=== PATIENT | female | born 1950 | race Caucasian/White ===

== ENCOUNTER 2021-08-10 14:34 | Outpatient (CLI) | payer MEDICARE, OTHER, SELFPAY | END 2021-08-10 14:35 | disposition home or self-care (01) | LOC: WOUND 14:36 | PROVIDERS: Family Provider Nurse Practitioner Family; PCP Nurse Practitioner Family; Visit Provider Thoracic Surgery (Cardiothoracic Vascular Surgery) | DX: L97.312 Non-pressure chronic ulcer of right ankle with fat layer exposed (principal); L97.322 Non-pressure chronic ulcer of left ankle with fat layer exposed; F17.210 Nicotine dependence, cigarettes, uncomplicated | CPT/HCPCS: 11042; G0463 ==

== ENCOUNTER 2021-08-15 13:37 | Outpatient (CLI) | payer MEDICARE, OTHER, SELFPAY | END 2021-08-15 13:38 | disposition home or self-care (01) | LOC: WOUND 13:38 | PROVIDERS: Family Provider Nurse Practitioner Family; PCP Nurse Practitioner Family; Visit Provider Nurse Practitioner Family | DX: Z51.89 Encounter for other specified aftercare (principal) | CPT/HCPCS: 11042; 29581 ==

== ENCOUNTER 2021-08-17 13:04 | Outpatient (CLI) | payer MEDICARE, OTHER, SELFPAY | END 2021-08-17 13:05 | disposition home or self-care (01) | LOC: WOUND 13:05 | PROVIDERS: Family Provider Nurse Practitioner Family; PCP Nurse Practitioner Family; Visit Provider Nurse Practitioner Family | DX: I87.2 Venous insufficiency (chronic) (peripheral) (principal); L97.312 Non-pressure chronic ulcer of right ankle with fat layer exposed; L97.322 Non-pressure chronic ulcer of left ankle with fat layer exposed; F17.210 Nicotine dependence, cigarettes, uncomplicated; J44.9 Chronic obstructive pulmonary disease, unspecified; I10 Essential (primary) hypertension | CPT/HCPCS: 11042 ==

== ENCOUNTER 2021-08-24 09:14 | Outpatient (CLI) | payer MEDICARE, OTHER, SELFPAY | END 2021-08-24 09:15 | disposition home or self-care (01) | LOC: WOUND 09:17 | PROVIDERS: Family Provider Nurse Practitioner Family; PCP Nurse Practitioner Family; Visit Provider Nurse Practitioner Family | DX: I87.2 Venous insufficiency (chronic) (peripheral) (principal); L97.312 Non-pressure chronic ulcer of right ankle with fat layer exposed; L97.322 Non-pressure chronic ulcer of left ankle with fat layer exposed; J44.9 Chronic obstructive pulmonary disease, unspecified; I10 Essential (primary) hypertension; F17.210 Nicotine dependence, cigarettes, uncomplicated | CPT/HCPCS: 11042; A6252 ==

== ENCOUNTER 2021-08-31 12:58 | Outpatient (CLI) | payer MEDICARE, OTHER, SELFPAY | END 2021-08-31 12:59 | disposition home or self-care (01) | LOC: WOUND 13:01 | PROVIDERS: Family Provider Nurse Practitioner Family; PCP Nurse Practitioner Family; Visit Provider Nurse Practitioner Family | DX: I96 Gangrene, not elsewhere classified (principal); I87.2 Venous insufficiency (chronic) (peripheral); L97.312 Non-pressure chronic ulcer of right ankle with fat layer exposed; L97.322 Non-pressure chronic ulcer of left ankle with fat layer exposed; F17.210 Nicotine dependence, cigarettes, uncomplicated; J44.9 Chronic obstructive pulmonary disease, unspecified | CPT/HCPCS: 11042; A6252 ==

== ENCOUNTER 2021-09-07 13:44 | Outpatient (CLI) | payer MEDICARE, OTHER, SELFPAY | END 2021-09-07 13:45 | disposition home or self-care (01) | LOC: WOUND 13:47 | PROVIDERS: Family Provider Nurse Practitioner Family; PCP Nurse Practitioner Family; Visit Provider Thoracic Surgery (Cardiothoracic Vascular Surgery) | DX: I96 Gangrene, not elsewhere classified (principal); I87.2 Venous insufficiency (chronic) (peripheral); L97.312 Non-pressure chronic ulcer of right ankle with fat layer exposed; L97.322 Non-pressure chronic ulcer of left ankle with fat layer exposed; F17.210 Nicotine dependence, cigarettes, uncomplicated; J44.9 Chronic obstructive pulmonary disease, unspecified | CPT/HCPCS: 11042; 97597; A6212 ==

== ENCOUNTER 2021-09-20 13:49 | Outpatient (CLI) | payer MEDICARE, OTHER, SELFPAY ==
--- NOTE | 2021-09-20 14:01 | USCV_ITS ---
Taylor Trent Age: 70 Gender: F : 1950 Exam Date: 09/20/2021 14:24 Ordering Phys: Clifton Galicia Technologist: Javi Carrillo Exam Location: [facility] [place]_ Indication: HISTORY: PROCEDURES: FINDINGS: The veins were found to be easily compressible with spontaneous blood flow. Non pulsatile flow pattern. The superficial veins that are small caliber at the below-knee levels. Venous reflux noted at the below-knee level of the greater saphenous vein segment on the left CONCLUSIONS 1. No evidence of DVT in the above-mentioned identifiable veins. 2. Significant venous reflux of greater than 500 ms were noted at the below-knee segment of the greater saphenous vein on the left side. But the venous segment was found to be of small caliber and very superficial(0.22 cm in diameter at a depth of 0.28 cm) 3. Superficial veins were found to be a small caliber bilaterally at the below-knee level. They were also found to be very superficial bilaterally-less than [address] Oswaldo Nesbitt MD [facility] (Electronically Signed) Final Date: 24 September 2021 16:02 S
== END 2021-09-20 13:50 | disposition home or self-care (01) ==
PROVIDERS: PCP Family Medicine; Visit Provider Family Medicine
DX: I83.003 Varicose veins of unspecified lower extremity with ulcer of ankle (principal); L97.302 Non-pressure chronic ulcer of unspecified ankle with fat layer exposed
CPT/HCPCS: 93970

== ENCOUNTER 2021-09-21 13:48 | Outpatient (CLI) | payer MEDICARE, OTHER, SELFPAY ==
--- NOTE | 2021-09-21 14:15 | USCV_ITS ---
Taylor Trent Age: 70 Gender: F : 1950 Exam Date: 09/21/2021 14:24 Ordering Phys: Clifton Galicia Technologist: Sophia Hensley Exam Location: [facility] [place] Indication: Atherosclerosis, arteries, rt leg with ulcerations Risk Factors: smoker,hypertension Previous Vascular Surgery: None RIGHT LEFT BP: 141.0 / 80.00 BP: 141.0/ 87.00 0 0 Waveform Velocity (cm/s) Velocity (cm/s) Waveform Triphasic 93.9 Iliac Prox 133.5 Triphasic Triphasic 96.7 Iliac Mid 130.7 Triphasic Triphasic 78.7 Iliac Distal 139.1 Triphasic Triphasic 102.5 CHEMISTRY FACULTY MEMBER 82.8 Triphasic Triphasic 77.8 SFA Prox 96.0 Triphasic Triphasic 98.1 SFA Mid 85.4 Triphasic Triphasic 59.0 SFA Dist 73.8 Triphasic Triphasic 44.3 POP 68.8 Triphasic Triphasic 65.3 ENVIRONMENTAL SERVICES TECHNICIAN 19.1 Biphasic Triphasic 26.9 DPA 50.0 Biphasic MARY 0.9 0.9 FINDINGS Right DPA- 122, right ENVIRONMENTAL SERVICES TECHNICIAN 122 Left DPA - 122, left 130 Moderate diffuse plaques bilaterally in the iliac and femoral arteries Slightly diminished resting MARY bilaterally- 0.9 CONCLUSIONS Features of mild peripheral artery disease bilaterally, based on the MARY. Moderate diffuse plaques in the iliac and femoral arteries bilaterally Compared to the study from 11/27/2017, the MARY has improved bilaterally, from 0.[address] Oswaldo Nesbitt MD [facility] (Electronically Signed) Final Date: 23 September 2021 10:05 S
== END 2021-09-21 13:49 | disposition home or self-care (01) ==
PROVIDERS: PCP Family Medicine; Visit Provider Family Medicine
DX: I83.003 Varicose veins of unspecified lower extremity with ulcer of ankle (principal); L97.302 Non-pressure chronic ulcer of unspecified ankle with fat layer exposed; I70.233 Atherosclerosis of native arteries of right leg with ulceration of ankle; I70.8 Atherosclerosis of other arteries
CPT/HCPCS: 93925

== ENCOUNTER 2021-09-21 15:13 | Outpatient (CLI) | payer MEDICARE, OTHER, SELFPAY | END 2021-09-21 15:14 | disposition home or self-care (01) | LOC: WOUND 15:14 | PROVIDERS: PCP Family Medicine; Visit Provider Nurse Practitioner Family | DX: I96 Gangrene, not elsewhere classified (principal); I87.2 Venous insufficiency (chronic) (peripheral); L97.312 Non-pressure chronic ulcer of right ankle with fat layer exposed; L97.322 Non-pressure chronic ulcer of left ankle with fat layer exposed; F17.210 Nicotine dependence, cigarettes, uncomplicated; J44.9 Chronic obstructive pulmonary disease, unspecified; I83.003 Varicose veins of unspecified lower extremity with ulcer of ankle; L97.302 Non-pressure chronic ulcer of unspecified ankle with fat layer exposed; I70.233 Atherosclerosis of native arteries of right leg with ulceration of ankle; I70.8 Atherosclerosis of other arteries | CPT/HCPCS: 11042; 93925 ==

== ENCOUNTER 2021-10-05 14:29 | Outpatient (CLI) | payer MEDICARE, OTHER, SELFPAY | END 2021-10-05 14:30 | disposition home or self-care (01) | LOC: WOUND 14:30 | PROVIDERS: PCP Family Medicine; Visit Provider Thoracic Surgery (Cardiothoracic Vascular Surgery) | DX: I96 Gangrene, not elsewhere classified (principal); I87.2 Venous insufficiency (chronic) (peripheral); L97.312 Non-pressure chronic ulcer of right ankle with fat layer exposed; L97.322 Non-pressure chronic ulcer of left ankle with fat layer exposed; F17.210 Nicotine dependence, cigarettes, uncomplicated; J44.9 Chronic obstructive pulmonary disease, unspecified | CPT/HCPCS: 97597 ==

== ENCOUNTER 2021-10-12 14:00 | Outpatient (CLI) | payer MEDICARE, OTHER, SELFPAY | END 2021-10-12 14:01 | disposition home or self-care (01) | LOC: WOUND 14:01 | PROVIDERS: PCP Family Medicine; Visit Provider Thoracic Surgery (Cardiothoracic Vascular Surgery) | DX: I96 Gangrene, not elsewhere classified (principal); I87.2 Venous insufficiency (chronic) (peripheral); L97.312 Non-pressure chronic ulcer of right ankle with fat layer exposed; L97.322 Non-pressure chronic ulcer of left ankle with fat layer exposed; F17.210 Nicotine dependence, cigarettes, uncomplicated; J44.9 Chronic obstructive pulmonary disease, unspecified | CPT/HCPCS: 11042 ==

== ENCOUNTER 2021-10-31 14:28 | Outpatient (CLI) | payer MEDICARE, OTHER, SELFPAY | END 2021-10-31 14:29 | disposition home or self-care (01) | LOC: WOUND 14:31 | PROVIDERS: PCP Family Medicine; Visit Provider Nurse Practitioner Family | DX: I96 Gangrene, not elsewhere classified (principal); I87.2 Venous insufficiency (chronic) (peripheral); L97.312 Non-pressure chronic ulcer of right ankle with fat layer exposed; L97.322 Non-pressure chronic ulcer of left ankle with fat layer exposed; F17.210 Nicotine dependence, cigarettes, uncomplicated; J44.9 Chronic obstructive pulmonary disease, unspecified | CPT/HCPCS: 11042 ==

== ENCOUNTER 2021-11-14 15:00 | Outpatient (CLI) | payer MEDICARE, OTHER, SELFPAY | END 2021-11-14 15:01 | disposition home or self-care (01) | LOC: WOUND 15:02 | PROVIDERS: PCP Family Medicine; Visit Provider Emergency Medicine | DX: I96 Gangrene, not elsewhere classified (principal); I87.2 Venous insufficiency (chronic) (peripheral); L97.312 Non-pressure chronic ulcer of right ankle with fat layer exposed; L97.322 Non-pressure chronic ulcer of left ankle with fat layer exposed; F17.210 Nicotine dependence, cigarettes, uncomplicated; J44.9 Chronic obstructive pulmonary disease, unspecified | CPT/HCPCS: 11042; 87070; 87176; 87205 ==

== ENCOUNTER 2021-11-21 15:39 | Outpatient (RCR) | payer MEDICARE, OTHER, SELFPAY | END 2021-11-28 23:59 | disposition home or self-care (01) | LOC: WOUND 15:39 | PROVIDERS: PCP Family Medicine; Visit Provider Thoracic Surgery (Cardiothoracic Vascular Surgery) | DX: I87.2 Venous insufficiency (chronic) (peripheral) (principal); L97.312 Non-pressure chronic ulcer of right ankle with fat layer exposed; L97.322 Non-pressure chronic ulcer of left ankle with fat layer exposed; F17.210 Nicotine dependence, cigarettes, uncomplicated | CPT/HCPCS: 97597; A6212 ==

== ENCOUNTER 2021-11-28 15:17 | Outpatient (CLI) | payer MEDICARE, OTHER, SELFPAY | END 2021-11-28 15:18 | disposition home or self-care (01) | LOC: WOUND 15:18 | PROVIDERS: PCP Family Medicine; Visit Provider Thoracic Surgery (Cardiothoracic Vascular Surgery) | DX: I87.2 Venous insufficiency (chronic) (peripheral) (principal); L97.322 Non-pressure chronic ulcer of left ankle with fat layer exposed; F17.210 Nicotine dependence, cigarettes, uncomplicated | CPT/HCPCS: 11042 ==

== ENCOUNTER 2021-12-01 08:05 | Outpatient (CLI) | payer MEDICARE, OTHER, SELFPAY | END 2021-12-01 08:06 | disposition home or self-care (01) | LOC: WOUND 08:06 | PROVIDERS: PCP Family Medicine; Visit Provider Emergency Medicine | DX: L97.812 Non-pressure chronic ulcer of other part of right lower leg with fat layer exposed (principal); L97.822 Non-pressure chronic ulcer of other part of left lower leg with fat layer exposed; I87.2 Venous insufficiency (chronic) (peripheral) | CPT/HCPCS: 29581 ==

== ENCOUNTER 2021-12-07 08:40 | Outpatient (CLI) | payer MEDICARE, OTHER, SELFPAY | END 2021-12-07 08:41 | disposition home or self-care (01) | LOC: WOUND 08:41 | PROVIDERS: PCP Family Medicine; Visit Provider Thoracic Surgery (Cardiothoracic Vascular Surgery) | DX: I87.2 Venous insufficiency (chronic) (peripheral) (principal); I96 Gangrene, not elsewhere classified; L97.322 Non-pressure chronic ulcer of left ankle with fat layer exposed; F17.210 Nicotine dependence, cigarettes, uncomplicated | CPT/HCPCS: 97597; A6252 ==

== ENCOUNTER 2021-12-14 09:15 | Outpatient (CLI) | payer MEDICARE, OTHER, SELFPAY | END 2021-12-14 09:16 | disposition home or self-care (01) | LOC: WOUND 09:16 | PROVIDERS: PCP Family Medicine; Visit Provider Thoracic Surgery (Cardiothoracic Vascular Surgery) | DX: I87.2 Venous insufficiency (chronic) (peripheral) (principal); F17.210 Nicotine dependence, cigarettes, uncomplicated; L97.322 Non-pressure chronic ulcer of left ankle with fat layer exposed; I96 Gangrene, not elsewhere classified | CPT/HCPCS: 97597 ==

== ENCOUNTER → 2021-12-21 09:47 | Outpatient (BNVA) | payer MEDICARE, OTHER, SELFPAY | PROVIDERS: PCP Family Medicine; Visit Provider Thoracic Surgery (Cardiothoracic Vascular Surgery) | DX: I87.2 Venous insufficiency (chronic) (peripheral) (principal); I96 Gangrene, not elsewhere classified; L97.322 Non-pressure chronic ulcer of left ankle with fat layer exposed; F17.210 Nicotine dependence, cigarettes, uncomplicated | CPT/HCPCS: 15271; A6250; A6252; Q4186 ==

== ENCOUNTER → 2022-01-04 10:43 | Outpatient (BNVA) | payer MEDICARE, OTHER, SELFPAY | PROVIDERS: PCP Family Medicine; Visit Provider Thoracic Surgery (Cardiothoracic Vascular Surgery) | DX: I87.2 Venous insufficiency (chronic) (peripheral) (principal); L97.322 Non-pressure chronic ulcer of left ankle with fat layer exposed; I96 Gangrene, not elsewhere classified | CPT/HCPCS: 15275; 29581; A6250; Q4186 ==

== ENCOUNTER → 2022-01-11 10:29 | Outpatient (BNVA) | payer MEDICARE, OTHER, SELFPAY | PROVIDERS: PCP Family Medicine; Visit Provider Thoracic Surgery (Cardiothoracic Vascular Surgery) | DX: I87.2 Venous insufficiency (chronic) (peripheral) (principal); I96 Gangrene, not elsewhere classified; L97.322 Non-pressure chronic ulcer of left ankle with fat layer exposed; F17.210 Nicotine dependence, cigarettes, uncomplicated | CPT/HCPCS: 15275; Q4186 ==

== ENCOUNTER → 2022-01-18 10:15 | Outpatient (BNVA) | payer MEDICARE, OTHER, SELFPAY | PROVIDERS: PCP Family Medicine; Visit Provider Nurse Practitioner Family | DX: I87.2 Venous insufficiency (chronic) (peripheral) (principal); I96 Gangrene, not elsewhere classified; L97.322 Non-pressure chronic ulcer of left ankle with fat layer exposed; F17.210 Nicotine dependence, cigarettes, uncomplicated | CPT/HCPCS: 15271; A6250; A6252; Q4186 ==

== ENCOUNTER → 2022-01-25 10:19 | Outpatient (BNVA) | payer MEDICARE, OTHER, SELFPAY | PROVIDERS: PCP Family Medicine; Visit Provider Thoracic Surgery (Cardiothoracic Vascular Surgery) | DX: I87.2 Venous insufficiency (chronic) (peripheral) (principal); L97.322 Non-pressure chronic ulcer of left ankle with fat layer exposed; I96 Gangrene, not elsewhere classified; F17.210 Nicotine dependence, cigarettes, uncomplicated | CPT/HCPCS: 15271; A6250; Q4186 ==

== ENCOUNTER → 2022-02-01 10:31 | Outpatient (BNVA) | payer MEDICARE, OTHER, SELFPAY | PROVIDERS: PCP Family Medicine; Visit Provider Thoracic Surgery (Cardiothoracic Vascular Surgery) | DX: I87.2 Venous insufficiency (chronic) (peripheral) (principal); F17.210 Nicotine dependence, cigarettes, uncomplicated; L97.322 Non-pressure chronic ulcer of left ankle with fat layer exposed; I96 Gangrene, not elsewhere classified | CPT/HCPCS: 97597 ==

== ENCOUNTER → 2022-02-15 14:18 | Outpatient (BNVA) | payer MEDICARE, OTHER, SELFPAY | PROVIDERS: PCP Family Medicine; Visit Provider Thoracic Surgery (Cardiothoracic Vascular Surgery) | DX: I87.2 Venous insufficiency (chronic) (peripheral) (principal); L97.322 Non-pressure chronic ulcer of left ankle with fat layer exposed; I96 Gangrene, not elsewhere classified | CPT/HCPCS: 97597 ==

== ENCOUNTER → 2022-03-15 14:02 | Outpatient (BNVA) | payer MEDICARE, OTHER, SELFPAY | PROVIDERS: PCP Family Medicine; Visit Provider Nurse Practitioner Family | DX: I87.2 Venous insufficiency (chronic) (peripheral) (principal); L97.322 Non-pressure chronic ulcer of left ankle with fat layer exposed; I96 Gangrene, not elsewhere classified | CPT/HCPCS: 11042; A6212 ==

== ENCOUNTER → 2022-04-05 13:45 | Outpatient (BNVA) | payer MEDICARE, OTHER, SELFPAY | PROVIDERS: PCP Family Medicine; Visit Provider Thoracic Surgery (Cardiothoracic Vascular Surgery) | DX: I87.2 Venous insufficiency (chronic) (peripheral) (principal); L97.322 Non-pressure chronic ulcer of left ankle with fat layer exposed; I96 Gangrene, not elsewhere classified | CPT/HCPCS: 97597; A6212 ==

== ENCOUNTER → 2022-04-17 14:35 | Outpatient (BNVA) | payer MEDICARE, OTHER, SELFPAY | PROVIDERS: PCP Family Medicine; Visit Provider Thoracic Surgery (Cardiothoracic Vascular Surgery) | DX: I87.2 Venous insufficiency (chronic) (peripheral) (principal); I96 Gangrene, not elsewhere classified; L97.322 Non-pressure chronic ulcer of left ankle with fat layer exposed | CPT/HCPCS: 97597; A6021; A6212 ==

== ENCOUNTER → 2022-05-08 14:14 | Outpatient (BNVA) | payer MEDICARE, OTHER, SELFPAY | PROVIDERS: PCP Family Medicine; Visit Provider Thoracic Surgery (Cardiothoracic Vascular Surgery) | DX: I87.2 Venous insufficiency (chronic) (peripheral) (principal); L97.322 Non-pressure chronic ulcer of left ankle with fat layer exposed | CPT/HCPCS: 97597 ==

== ENCOUNTER → 2022-05-29 15:03 | Outpatient (BNVA) | payer MEDICARE, OTHER, SELFPAY | PROVIDERS: PCP Family Medicine; Visit Provider Thoracic Surgery (Cardiothoracic Vascular Surgery) | DX: I87.2 Venous insufficiency (chronic) (peripheral) (principal); L97.322 Non-pressure chronic ulcer of left ankle with fat layer exposed; I96 Gangrene, not elsewhere classified | CPT/HCPCS: 97597 ==

== ENCOUNTER → 2022-06-12 14:47 | Outpatient (BNVA) | payer MEDICARE, OTHER, SELFPAY | PROVIDERS: PCP Family Medicine; Visit Provider Nurse Practitioner Family | DX: I96 Gangrene, not elsewhere classified (principal); I87.2 Venous insufficiency (chronic) (peripheral); L97.322 Non-pressure chronic ulcer of left ankle with fat layer exposed | CPT/HCPCS: 11042 ==

== ENCOUNTER → 2022-06-20 13:05 | Outpatient (BNVA) | payer MEDICARE, OTHER, SELFPAY | PROVIDERS: PCP Family Medicine; Visit Provider Nurse Practitioner Family | DX: I87.2 Venous insufficiency (chronic) (peripheral) (principal); L97.322 Non-pressure chronic ulcer of left ankle with fat layer exposed | CPT/HCPCS: 11042; 87070; 87176; 87186; 87205 ==

== ENCOUNTER → 2022-06-26 14:29 | Outpatient (BNVA) | payer MEDICARE, OTHER, SELFPAY | PROVIDERS: PCP Family Medicine; Visit Provider Thoracic Surgery (Cardiothoracic Vascular Surgery) | DX: I96 Gangrene, not elsewhere classified (principal); I87.2 Venous insufficiency (chronic) (peripheral); L97.322 Non-pressure chronic ulcer of left ankle with fat layer exposed | CPT/HCPCS: 11042 ==

== ENCOUNTER → 2022-07-03 14:54 | Outpatient (BNVA) | payer MEDICARE, OTHER, SELFPAY | PROVIDERS: PCP Family Medicine; Visit Provider Thoracic Surgery (Cardiothoracic Vascular Surgery) | DX: I96 Gangrene, not elsewhere classified (principal); I87.2 Venous insufficiency (chronic) (peripheral); L97.322 Non-pressure chronic ulcer of left ankle with fat layer exposed | CPT/HCPCS: 99212; A6212 ==

== ENCOUNTER → 2022-07-17 13:53 | Outpatient (BNVA) | payer MEDICARE, OTHER, SELFPAY | PROVIDERS: PCP Family Medicine; Visit Provider Thoracic Surgery (Cardiothoracic Vascular Surgery) | DX: I96 Gangrene, not elsewhere classified (principal); I87.2 Venous insufficiency (chronic) (peripheral); L97.322 Non-pressure chronic ulcer of left ankle with fat layer exposed | CPT/HCPCS: 11042; A6212 ==

== ENCOUNTER → 2022-08-02 12:57 | Outpatient (BNVA) | payer MEDICARE, OTHER, SELFPAY | PROVIDERS: PCP Family Medicine; Visit Provider Thoracic Surgery (Cardiothoracic Vascular Surgery) | DX: I96 Gangrene, not elsewhere classified (principal); I87.2 Venous insufficiency (chronic) (peripheral); L97.322 Non-pressure chronic ulcer of left ankle with fat layer exposed | CPT/HCPCS: 11042; A6252 ==

== ENCOUNTER → 2022-08-04 14:11 | Outpatient (BNVA) | payer MEDICARE, OTHER, SELFPAY | PROVIDERS: PCP Family Medicine; Visit Provider Surgery | DX: I96 Gangrene, not elsewhere classified (principal); I87.2 Venous insufficiency (chronic) (peripheral); L97.322 Non-pressure chronic ulcer of left ankle with fat layer exposed | CPT/HCPCS: 29581 ==

== ENCOUNTER → 2022-08-09 14:33 | Outpatient (BNVA) | payer MEDICARE, OTHER, SELFPAY | PROVIDERS: PCP Family Medicine; Visit Provider Thoracic Surgery (Cardiothoracic Vascular Surgery) | DX: I96 Gangrene, not elsewhere classified (principal); I87.2 Venous insufficiency (chronic) (peripheral); L97.322 Non-pressure chronic ulcer of left ankle with fat layer exposed | CPT/HCPCS: 11042; A6252 ==

== ENCOUNTER → 2022-08-16 15:04 | Outpatient (BNVA) | payer MEDICARE, OTHER, SELFPAY | PROVIDERS: PCP Family Medicine; Visit Provider Nurse Practitioner Family | DX: I96 Gangrene, not elsewhere classified (principal); I87.2 Venous insufficiency (chronic) (peripheral); L97.322 Non-pressure chronic ulcer of left ankle with fat layer exposed | CPT/HCPCS: 11042; A6251 ==

== ENCOUNTER → 2022-08-30 11:02 | Outpatient (BNVA) | payer MEDICARE, OTHER, SELFPAY | PROVIDERS: PCP Family Medicine; Visit Provider Nurse Practitioner Family | DX: I87.2 Venous insufficiency (chronic) (peripheral) (principal); L97.322 Non-pressure chronic ulcer of left ankle with fat layer exposed | CPT/HCPCS: 11042; A6252 ==

== ENCOUNTER → 2022-09-06 08:40 | Outpatient (BNVA) | payer MEDICARE, OTHER, SELFPAY | PROVIDERS: PCP Family Medicine; Visit Provider Thoracic Surgery (Cardiothoracic Vascular Surgery) | DX: I87.2 Venous insufficiency (chronic) (peripheral) (principal); L97.322 Non-pressure chronic ulcer of left ankle with fat layer exposed | CPT/HCPCS: 15275; A6206; A6252; Q4205 ==

== ENCOUNTER → 2022-09-13 09:01 | Outpatient (BNVA) | payer MEDICARE, OTHER, SELFPAY | PROVIDERS: PCP Family Medicine; Visit Provider Thoracic Surgery (Cardiothoracic Vascular Surgery) | DX: I96 Gangrene, not elsewhere classified (principal); I87.2 Venous insufficiency (chronic) (peripheral); L97.322 Non-pressure chronic ulcer of left ankle with fat layer exposed | CPT/HCPCS: 15271; A6206; A6252; Q4205 ==

== ENCOUNTER → 2022-09-20 08:47 | Outpatient (BNVA) | payer MEDICARE, OTHER, SELFPAY | PROVIDERS: PCP Family Medicine; Visit Provider Thoracic Surgery (Cardiothoracic Vascular Surgery) | DX: I96 Gangrene, not elsewhere classified (principal); I87.2 Venous insufficiency (chronic) (peripheral); L97.322 Non-pressure chronic ulcer of left ankle with fat layer exposed | CPT/HCPCS: 15271; A6206; A6252; Q4205 ==

== ENCOUNTER → 2022-09-29 14:00 | Outpatient (BNVA) | payer MEDICARE, OTHER, SELFPAY | PROVIDERS: PCP Family Medicine; Visit Provider Thoracic Surgery (Cardiothoracic Vascular Surgery) | DX: I87.2 Venous insufficiency (chronic) (peripheral) (principal); L97.322 Non-pressure chronic ulcer of left ankle with fat layer exposed | CPT/HCPCS: 15271; A6206; A6252; Q4205 ==

== ENCOUNTER → 2022-10-04 16:02 | Outpatient (BNVA) | payer MEDICARE, OTHER, SELFPAY | PROVIDERS: PCP Family Medicine; Visit Provider Thoracic Surgery (Cardiothoracic Vascular Surgery) | DX: I96 Gangrene, not elsewhere classified (principal); I87.2 Venous insufficiency (chronic) (peripheral); L97.322 Non-pressure chronic ulcer of left ankle with fat layer exposed | CPT/HCPCS: 15271; A6206; A6210; A6250; A6251; Q4205 ==

== ENCOUNTER → 2022-10-11 16:59 | Outpatient (BNVA) | payer MEDICARE, OTHER, SELFPAY | PROVIDERS: PCP Family Medicine; Visit Provider Thoracic Surgery (Cardiothoracic Vascular Surgery) | DX: I96 Gangrene, not elsewhere classified (principal); I87.2 Venous insufficiency (chronic) (peripheral); L97.322 Non-pressure chronic ulcer of left ankle with fat layer exposed | CPT/HCPCS: 15275; A6206; A6210; A6250; A6252; Q4205 ==